=== PATIENT | female | born 1990 ===

== ENCOUNTER 2022-12-22 15:50 | Emergency (ER) | payer SELFPAY ==
[~2022-12-22] VITALS: Ht 160 cm; Wt 80.0 kg
[~2022-12-22 15:50] MED LIST: ACET-789 PO; ACHD5005 PO; CEPH-507 PO; CEPH500T PO; DOCU-143 PO; HYDR-4226 PO; IBUP-1780 PO; IRON1TAB97 PO; MEDR10TA9 PO
--- NOTE | 2022-12-22 16:43 | ED GU-Female ---
General Chief Complaint: - Reproductive Stated Complaint: VAGINAL BLEEDING, ABD PAIN Nursing Triage Note: PT HAS FRIEND W/ HER INTERPRETTING- PT REPORTS HEAVY BLEEDING X 4 DAYS. TOOK PREG TEST 2 WEEKS AGO AND IT WAS NEGATIVE. LAST LMP 09/14/22. HISTORY OF FIBROIDS. PT REPORTS NAUSEA Source: patient Exam Limitations: no limitations (MIKE DORANTES) History of Present Illness Date Seen by Provider: Dec 22, 2022 Time Seen by Provider: 16:41 Initial Comments Patient is a 31-year-old female who presents ED for abdominal pain and heavy vaginal bleeding. Abdominal pain started 4 days ago located in her lower abdomen. Pain is intermittent described as dull and achy and cramping. She reports heavier bleeding than normal. Start her menstrual cycle 4 days ago when the pain started. She reports going through 8 pads. History of uterine fibroids requiring surgery 3 years ago. History of and cholecystectomy. She has been taking Tylenol at home without much improvement. She does report frequent urination pain with urination. No vaginal discharge. She does have rating pain down the legs. She denies of any bowel or urine cons, saddle paresthesia, chest pain, shortness of breath, sore throat, headache or dizziness. She does report episode of vomiting without any diarrhea (MIKE DORANTES) Allergies and Home Medications Allergies Coded Allergies: No Allergy Information Available (Unverified , 12/22/22) No Known Drug Allergies (Unverified , 12/23/22) Patient Home Medication List Home Medication List Reviewed: Yes (MIKE DORANTES) Cefdinir (Cefdinir) 300 Mg Capsule, 300 MG PO BID Prescribed by: CINDY FRANKS on 12/22/221902 Docusate Sodium (Colace) 100 Mg Capsule, 100 MG PO BID Prescribed by: AP CHOWDHURY on 02/20/20 09 Hydrocodone Bit/Acetaminophen (HYDROcodone/APAP 5 MG/325 MG TAB) 1 Tab Tab, 1 TAB PO Q6H Prescribed by: ANN YOUNG on 08/07/20 0718 Hydrocodone/Acetaminophen (Hydrocodone/Acetaminophen 5 MG/325 MG TAB) 1 Each Tablet, 1 TAB PO Q4-6HR Prescribed by: AP CHOWDHURY on 02/20/20 0932 Hydrocodone/Acetaminophen (Hydrocodone-Acetamin 5-325 mg) 5 Mg-325 Mg Tablet, 1 TAB PO Q4H PRN for PAIN-MODERATE (5-7) Prescribed by: CINDY FRANKS on 12/22/221958 Medroxyprogesterone Acetate (Medroxyprogesterone Acetate) 10 Mg Tablet, 10 MG PO DAILY Prescribed by: CINDY FRANKS on 12/22/221905 Ondansetron (Ondansetron Odt) 4 Mg Tab.rapdis, 4 MG SL Q4H PRN for NAUSEA/VOMITING Prescribed by: CINDY FRANKS on 12/22/221902 Ondansetron (Ondansetron Odt) 4 Mg Tab.rapdis, 4 MG SL Q4H PRN for NAUSEA/VOMITING Prescribed by: CINDY FRANKS on 12/22/221999 Review of Systems Review of Systems Constitutional: No chills, No diaphoresis EENTM: No hearing loss, No ear pain, No blurred vision Respiratory: No cough, No dyspnea on exertion Cardiovascular: No chest pain Gastrointestinal: abdominal pain; No diarrhea; nausea, vomiting Genitourinary: denies burning, denies discharge; dysuria, frequency, pain Musculoskeletal: No back pain, No joint pain Skin: No change in color (MIKE DORANTES) All Other Systemes Reviewed Negative Unless Noted: Yes (MIKE DORANTES) Past Zrkksgr-Azzpjx-Lhlish Hx Patient Social History Pt feels they are or have been: No (MIKE DORANTES) Physical Exam Vital Signs Vital Signs - First Documented 12/22/22 16:05 Temp 37.0 Pulse 92 Resp 20 B/P (MAP) 134/94 (107) Pulse Ox 99 O2 Delivery Room Air (AASHISH CONRAD MD) Vital Signs Capillary Refill : Less Than 3 Seconds (MIKE DORANTES) Height, Weight, BMI Height: '" Weight: lbs. oz. kg; 31.00 BMI Method: General Appearance: WD/WN, no apparent distress HEENT: PERRL/EOMI, normal ENT inspection, TMs normal, pharynx normal Neck: non-tender, full range of motion, supple Cardiovascular: regular rate, rhythm, no edema, no gallop, no JVD Respiratory: chest non-tender, lungs clear, normal breath sounds, no respiratory distress Gastrointestinal: normal bowel sounds, non tender, soft, tenderness (Right and left lower quadrant tenderness. Normal bowel sounds throughout. 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 nml as tested, no motor/sensory deficits, alert, normal mood/affect, oriented x 3 Skin: normal color, warm/dry (MIKE DORANTES) Progress/Results/Core Measures Suspected Sepsis SIRS Temperature: Pulse: 92 Respiratory Rate: 20 Laboratory Tests 12/22/22 16:59: White Blood Count 16.3H Blood Pressure 134 /94 Mean: 107 Laboratory Tests 12/22/22 16:59: Creatinine 0.66, INR Comment 1.0, Platelet Count 472H, Total Bilirubin 0.2 (MIKE DORANTES) Results/Orders Lab Results Laboratory Tests Test 12/22/22 16:30 12/22/22 16:59 12/22/22 17:40 Range/Units Urine Color RED H Urine Clarity CLOUDY Urine pH 5.5 5-9 Urine Specific [place] >=1.030 1.016-1.022 Urine Protein 2+ H NEGATIVE Urine Glucose (UA) NEGATIVE NEGATIVE Urine Ketones NEGATIVE NEGATIVE Urine Nitrite NEGATIVE NEGATIVE Urine Bilirubin NEGATIVE NEGATIVE Urine Urobilinogen 0.2 < = 1.0 MG/DL Urine Leukocyte Esterase 3+ H NEGATIVE Urine RBC (Auto) 3+ H NEGATIVE Urine RBC TNTC H /HPF Urine WBC TNTC H /HPF Urine Squamous Epithelial Cells 5-10 /HPF Urine Crystals NONE /LPF Urine Bacteria LARGE H /HPF Urine Casts NONE /LPF Urine Mucus NEGATIVE /LPF Urine Culture Indicated YES Urine Test NEGATIVE NEGATIVE White Blood Count 16.3 H 4.3-11.0 10^3/uL Red Blood Count 4.70 3.80-5.11 10^6/uL Hemoglobin 11.7 11.5-16.0 g/dL Hematocrit 39 35-52 % Mean Corpuscular Volume 82 80-99 fL Mean Corpuscular Hemoglobin 25 25-34 pg Mean Corpuscular Hemoglobin Concent 30 L 32-36 g/dL Red Cell Distribution Width 15.7 H 10.0-14.5 % Platelet Count 472 H 130-400 10^3/uL Mean Platelet Volume 11.9 9.0-12.2 fL Immature Granulocyte % (Auto) 0 % Neutrophils (%) (Auto) 68 42-75 % Lymphocytes (%) (Auto) 20 12-44 % Monocytes (%) (Auto) 4 0-12 % Eosinophils (%) (Auto) 7 0-10 % Basophils (%) (Auto) 1 0-10 % Neutrophils # (Auto) 11.1 H 1.8-7.8 10^3/uL Lymphocytes # (Auto) 3.2 1.0-4.0 10^3/uL Monocytes # (Auto) 0.7 0.0-1.0 10^3/uL Eosinophils # (Auto) 1.2 H 0.0-0.3 10^3/uL Basophils # (Auto) 0.1 0.0-0.1 10^3/uL Immature Granulocyte # (Auto) 0.1 0.0-0.1 10^3/uL Neutrophils % (Manual) 72 % Lymphocytes % (Manual) 19 % Monocytes % (Manual) 2 % Eosinophils % (Manual) 7 % Hypochromasia SLIGHT Basophilic Stippling Anisocytosis SLIGHT Prothrombin Time 13.3 12.2-14.7 SEC INR Comment 1.0 0.8-1.4 Activated Partial Thromboplast Time 32 24-35 SEC Sodium Level 136 135-145 MMOL/L Potassium Level 3.7 3.6-5.0 MMOL/L Chloride Level 106 98-107 MMOL/L Carbon Dioxide Level 21 21-32 MMOL/L Anion Gap 9 5-14 MMOL/L Blood Urea Nitrogen 17 7-18 MG/DL Creatinine 0.66 0.60-1.30 MG/DL Estimat Glomerular Filtration Rate 119 BUN/Creatinine Ratio 26 Glucose Level 84 70-105 MG/DL Calcium Level 8.1 L 8.5-10.1 MG/DL Corrected Calcium 8.3 L 8.5-10.1 MG/DL Total Bilirubin 0.2 0.1-1.0 MG/DL Aspartate Amino Transf (AST/SGOT) 18 5-34 U/L Alanine Aminotransferase (ALT/SGPT) 12 0-55 U/L Alkaline Phosphatase 93 40-136 U/L Total Protein 7.8 6.4-8.2 GM/DL Albumin 3.8 3.2-4.5 GM/DL Lipase 17 8-78 U/L (AASHISH OCNRAD MD) Vital Signs/I&O Capillary Refill : Less Than 3 Seconds (MIKE DORANTES) 2 Blood Pressure Mean: 107 Departure Communication (PCP) Patient presents to ED with lower abdominal pain, bilateral flank pain heavy vaginal bleeding and urinary symptoms. Symptoms over the past 4 days described as crampy intermittent with heavy bleeding. She reports going through 8 pads per day. History of similar symptoms secondary to uterine fibroids required surgery 3 to 4 years ago. She denies history of anemia. CBC, CMP, urinalysis with STD cultures, pelvic exam, CT abdomen pelvis was ordered. Patient refused anything for pain. No vomiting here. CBC showed a white blood count of 16. Normal hemoglobin 11.7, platelets 472. Chemistry was grossly unremarkable. Urinalysis concerning for infection and negative for . CT abdomen pelvis shows large staghorn calculus of the left kidney with severe left hydro nephrosis and left renal cortical scarring. No other acute abnormality in the abdomen or pelvis. Patient did receive a dose of Rocephin. Recommended a pelvic exam for further evaluation of the bleeding. Patient was in fast track. I Was waiting for a room to do the exam. Due to length of time patient refused waiting for room to do a pelvic exam. Did add chlamydia and gonorrhea in the urine but was not treated prophylactically. She is not concern for sexual transmitted infections. History of urinary tract infections and a history of kidney stones with no previous surgeries in the past. Patient was discussed with Dr. Duglas Tracy urologist at [facility]. At this time recommended no emergent transport. Did recommend treating the infection. Culture pending. Recommended outpatient follow-up for this and okay for patient to be discharged. Due to the heavy vaginal bleeding did suggest outpatient gynecology follow-up. She states she has had this before where she became anemic and required blood transfusion and surgery. She states she had the uterine fibroids surgically removed. Due to her excessive amount of bleeding which is abnormal for her will discharge with progesterone for 10 days. Patient will need a formal ultrasound. Do not have ultrasound in the evenings. Not concern for TOA or ovarian torsion. Suggest anti-inflammatories. Will discharge with Zofran. Will discharge with cefdinir pending culture. If any worsening pain, weakness, vomiting, increasing bleeding need to return back to ED. Suggest rechecking your hemoglobin in 2 days. Will discharge something for pain. (MIKE DORANTES) Impression Primary Impression: Urinary tract infection Additional Impression: Staghorn calculus Disposition: HOME, SELF-CARE Condition: Stable Departure-Patient Inst. Decision time for Depature: 19:02 (MIKE DORANTES) Referrals: [facility] (PCP) Primary Care Physician SAMM BAÑUELOS DO Patient Instructions: Kidney Stones (DC) Add. Discharge Instructions: Take control to help with bleeding. Need to follow-up with Dr. Bañuelos outpatient. If worsening bleeding, weakness, paleness to return back to ED. Need to follow-up with [facility] urology for the staghorn kidney stone. Take antibiotics as prescribed. If any worsening urinary symptoms fever vomiting to return back to ED. [facility] urology [phone] All discharge instructions reviewed with patient and/or family. Voiced understanding. Scripts Ondansetron (Ondansetron Odt) 4 Mg Tab.rapdis 4 MG SL Q4H PRN for NAUSEA/VOMITING, #6 TAB Prov: MIKE DORANTES 12/22/22 Hydrocodone/Acetaminophen (Hydrocodone-Acetamin 5-325 mg) 5 Mg-325 Mg Tablet 1 TAB PO Q4H PRN for PAIN-MODERATE (5-7), #8 TAB Prov: MIKE DORANTES 12/22/22 Medroxyprogesterone Acetate (Medroxyprogesterone Acetate) 10 Mg Tablet 10 MG PO DAILY for 14 Days, #14 TAB Prov: MIKE DORANTES 12/22/22 Ondansetron (Ondansetron Odt) 4 Mg Tab.rapdis 4 MG SL Q4H PRN for NAUSEA/VOMITING, #6 TAB Prov: MIKE DORANTES 12/22/22 Cefdinir (Cefdinir) 300 Mg Capsule 300 MG PO BID for 10 Days, #20 CAP Prov: MIKE DORANTES 12/22/22 ATTENDING PHYSICIAN NOTE: I was physically present as attending physician in the emergency department during the care of this patient, but I was not directly involved in the decision making or delivery of care for this patient. (AASHISH CONRAD MD) MIKE DORANTES Dec 22, 2022 16:43 AASHISH CONRAD MD Dec 24, 2022 06:52
[2022-12-22 16:59] LABS: CLARITY,URINE CLOUDY; COLOR,URINE RED; GLUCOSE, URINE (UA) NEGATIVE (NEGATIVE); KETONES,URINE NEGATIVE (NEGATIVE); PH,URINE 5.5 (5-9); PROTEIN,URINE 2+ (NEGATIVE)
[2022-12-22 17:00] LABS: BACTERIA,URINE LARGE /HPF; BILIRUBIN,URINE NEGATIVE (NEGATIVE); LEUKOCYTE ESTERASE ,URINE 3+ (NEGATIVE); NITRITE,URINE NEGATIVE (NEGATIVE); RBC,URINE TNTC /HPF; WBC,URINE TNTC /HPF
[2022-12-22 17:04] LABS: BASOPHILS # (AUTO) 0.1 10^3/uL (0.0-0.1); BASOPHILS % (AUTO) 1 % (0-10); EOSINOPHILS # (AUTO) 1.2 10^3/uL (0.0-0.3); EOSINOPHILS % (AUTO) 7 % (0-10); HEMATOCRIT 39 % (35-52); HEMOGLOBIN 11.7 g/dL (11.5-16.0); LYMPHOCYTES # (AUTO) 3.2 10^3/uL (1.0-4.0); LYMPHOCYTES % (AUTO) 20 % (12-44); MEAN CORPUSCULAR HEMOGLOBIN 25 pg (25-34); MEAN CORPUSCULAR HGB CONC 30 g/dL (32-36); MEAN CORPUSCULAR VOLUME 82 fL (80-99); MEAN PLATELET VOLUME 11.9 fL (9.0-12.2); MONOCYTES # (AUTO) 0.7 10^3/uL (0.0-1.0); MONOCYTES % (AUTO) 4 % (0-12); NEUTROPHILS # (AUTO) 11.1 10^3/uL (1.8-7.8); NEUTROPHILS % (AUTO) 68 % (42-75); PLATELET COUNT 472 10^3/uL (130-400); WHITE BLOOD COUNT 16.3 10^3/uL (4.3-11.0)
[2022-12-22 17:10] LABS: ALBUMIN 3.8 GM/DL (3.2-4.5); POTASSIUM 3.7 MMOL/L (3.6-5.0)
[2022-12-22 17:11] LABS: CALCIUM 8.1 MG/DL (8.5-10.1)
[2022-12-22 17:13] LABS: TOTAL PROTEIN 7.8 GM/DL (6.4-8.2)
[2022-12-22 17:14] LABS: BILIRUBIN,TOTAL 0.2 MG/DL (0.1-1.0)
[2022-12-22 17:16] LABS: CREATININE SERUM 0.66 MG/DL (0.60-1.30)
[2022-12-22 17:33] LABS: ANISOCYTOSIS SLIGHT; EOSINOPHILS % (MANUAL) 7 %; HYPOCHROMASIA SLIGHT; LYMPHOCYTES % (MANUAL) 19 %; MONOCYTES % (MANUAL) 2 %; NEUTROPHILS % (MANUAL) 72 %
[2022-12-22] MEDS ORDERED: IOHEXOL 350 MG/ML 100 ML (OMNIPAQUE 350) VIAL IV ONE (17:45)
[2022-12-22] MEDS ORDERED: NS 100 ML (IVPB) BAG IV ONE (17:45)
[2022-12-22 17:52] LABS: PROTHROMBIN TIME PATIENT 13.3 SEC (12.2-14.7)
--- NOTE | 2022-12-22 18:28 | Diagnostic Imaging Report ---
Procedure: CT abdomen and pelvis with contrast, rule out appendicitis. Technique: Multiple contiguous axial images were obtained through the abdomen and pelvis after the administration of intravenous contrast. All CT scans use one or more of the following dose optimizing techniques: automated exposure control, MA and/or KvP adjustment based on patient size and exam type or iterative reconstruction. Date: December 22, 2022. Indication: 31-year-old female, vaginal bleeding. Right lower quadrant abdominal pain. Comparison: Pelvic ultrasound November 13, 2015. Findings: The visualized portions of the lung bases are clear. The heart is not enlarged. There is no pericardial effusion. The liver is unremarkable in size and contour. There is no identified liver lesion. The main, right and left portal veins are patent. The gallbladder is unremarkable. There is no intrahepatic or extrahepatic bile duct dilation. The main pancreatic duct is not abnormally dilated. Unremarkable appearance of the pancreatic parenchyma. The spleen is normal in size. The adrenal glands are unremarkable. There are large staghorn left renal calculi. There is severe left hydronephrosis. There is left renal cortical scarring. There is no identified current ureteral stone. There is no right hydronephrosis. The urinary bladder is unremarkable. Unremarkable CT evaluation of the uterus and adnexa. There is diverticulosis without evidence of acute diverticulitis. There is no evidence of acute appendicitis. There is a broad-based fat-containing anterior abdominal wall hernia without complication. There is no free intraperitoneal air. There is no drainable fluid collection. There is no free fluid in the abdomen or pelvis. There is no identified abnormally enlarged lymph node in the abdomen or pelvis meeting CT size criteria for adenopathy. There is no identified acute bony abnormality. Impression: 1. Large staghorn calculus of the left kidney with severe left hydronephrosis and areas of left renal cortical scarring. 2. No identified ureteral stone. 3. No otherwise identified acute abnormality in the abdomen or pelvis. 4. Fat-containing anterior abdominal wall hernia without complication. Dictated by: Dictated on workstation # [id number]
[2022-12-22] MEDS ORDERED: cefTRIAXone IV/IM 1,000 MG in NS (IVPB) 50 ML 50 ML IV STA (18:39)
[2022-12-22] MEDS ORDERED: ONDA4TAB11 SL ×2 (19:03→20:00)
[2022-12-22] MEDS ORDERED: CEFD300C3 PO (19:03)
[2022-12-22] MEDS ORDERED: MEDR10TA9 PO (19:06)
[2022-12-22 19:33] VITALS: BP 127/86
[2022-12-22] MEDS ORDERED: ACHD5005 PO (19:58)
== END 2022-12-22 19:34 | disposition home or self-care (01) ==
LOC: EDBD → EDUNIT# 15:50 → ER 15:57
DX: N13.2 Hydronephrosis with renal and ureteral calculous obstruction (principal); N39.0 Urinary tract infection, site not specified; R11.2 Nausea with vomiting, unspecified; N93.9 Abnormal uterine and vaginal bleeding, unspecified
CPT/HCPCS: 36415; 74177; 80053; 81000; 83690; 84703; 85007; 85027; 85610; 85730; 87077; 87088; 87186; 87491; 87591; 96365